=== PATIENT | female | born 1930 | race Caucasian/White ===

== ENCOUNTER 2016-11-23 13:25 | Emergency (ER) | payer OTHER ==
[~2016-11-23] VITALS: Ht 152.4 cm; Wt 75.0 kg
[2016-11-23 14:17] LABS: HEMATOCRIT. 36.7 % (36.0-48.0); HEMOGLOBIN. 12.1 g/dL (12.0-16.0); MEAN CORPUSCULAR HEMOGLOBIN 30.9 pg (28.0-32.0); MEAN CORPUSCULAR HGB CONC 32.9 g/dL (31.0-37.0); MEAN CORPUSCULAR VOLUME 93.7 fL (81.0-99.0); MEAN PLATELET VOLUME 8.2 fl (7.4-10.4); PLATELET 255 x1000/uL (130-400); RED BLOOD CELL COUNT 3.92 mill/uL (4.2-5.4); RED CELL DISTRIBUTION WIDTH 13.3 % (11.6-14.6); WHITE BLOOD COUNT 12.5 x1000/uL (4.5-11.0)
[2016-11-23 14:25] LABS: DIFFERENTIAL COMMENT 1
[2016-11-23 14:26] LABS: INR 1.1; PROTHROMBIN TIME 11.4 sec
[2016-11-23 14:27] LABS: ALBUMIN 3.2 g/dL (3.4-5.0); ANION GAP 15; CALCIUM 9.1 mg/dL (8.5-10.1); CARBON DIOXIDE 24 mEq/L (21-32); CHLORIDE 97 mEq/L (98-107); INDEX HEMOLYSI 2 (1-3); INDEX ICTERIC 1 (1-4); INDEX LIPEMIC 1 (1-3); UREA NITROGEN BLOOD 11 mg/dL (7-21)
[2016-11-23 14:30] LABS: ALANINE AMINOTRANSFERASE 21 IU/L (13-61); eGFR 53 mL/min (>60)
[2016-11-23 14:41] LABS: LACTIC ACID 3.9 mmol/L (0.4-2.0)
[2016-11-23] MEDS ORDERED: CEFTRIAXONE 1 G PREMIX 50 ML IV ONE (14:45)
[2016-11-23] MEDS ORDERED: SODIUM CHLORIDE 0.9% 1000ML BAG (SEPSIS BOLUS) IV ONE (14:45)
[2016-11-23 14:47] LABS: PLATELET ESTIMATE NORMAL
[2016-11-23] MEDS ORDERED: ATOR40TA70 PO (15:46)
[2016-11-23] MEDS ORDERED: INSU3INS6 SQ (15:46)
[2016-11-23] MEDS ORDERED: LEVO75TA7 PO (15:47)
[2016-11-23] MEDS ORDERED: AMLO5TAB4 PO (15:47)
[2016-11-23] MEDS ORDERED: METF-516 PO (15:48)
[2016-11-23 15:49] LABS: CLARITY URINE CLOUDY (CLEAR); COLOR URINE YELLOW (YELLOW); GLUCOSE URINE 2+ (NEGATIVE); KETONES URINE TRACE (NEGATIVE); LEUKOCYTE ESTERASE URINE 3+ (NEGATIVE); NITRITE URINE POSITIVE (NEGATIVE); OCCULT BLOOD URINE 1+ (NEGATIVE); PH URINE 5.5 (4.5-8.0); PROTEIN URINE 2+ (NEGATIVE); SPECIFIC GRAVITY URINE 1.015 (1.005-1.030); UROBILINOGEN URINE 0.2 E.U./dL (0.2-1.0)
[2016-11-23 16:13] LABS: BACTERIA URINE 4+; SQUAMOUS EPITHELIAL CELL URINE FEW /lpf (RARE/1+); WBC URINE 50-100 /hpf (0-2)
[2016-11-23 19:37] VITALS: BP 154/58
== END 2016-11-23 19:35 | disposition short-term general hospital (02) ==
LOC: ER 13:58
DX: A41.89 Other specified sepsis (principal); N30.00 Acute cystitis without hematuria; R65.21 Severe sepsis with septic shock; E11.65 Type 2 diabetes mellitus with hyperglycemia; R00.0 Tachycardia, unspecified; D72.829 Elevated white blood cell count, unspecified; E11.9 Type 2 diabetes mellitus without complications; E78.00 Pure hypercholesterolemia, unspecified; I51.9 Heart disease, unspecified; I45.10 Unspecified right bundle-branch block; Z79.4 Long term (current) use of insulin; Z95.1 Presence of aortocoronary bypass graft
CPT/HCPCS: 36415; 51702; 71010; 80053; 81001; 82962; 83605; 85025; 85610; 87040; 87077; 87186; 93005; 96366; 99291; J0696; J7030